=== PATIENT | male | born 1960 | race Caucasian/White ===

== ENCOUNTER 2020-08-06 23:22 | Emergency (ER) | payer BC ==
[~2020-08-06] VITALS: Ht 180.3 cm; Wt 109.1 kg
[2020-08-06 23:45] VITALS: BP 127/89; TEMP 97.7
[2020-08-06] MEDS ORDERED: PRINIVIL10 MG PO (23:56)
[2020-08-06] MEDS ORDERED: GLUCOPHAGE500 MG/TAB PO (23:57)
[2020-08-06] MEDS ORDERED: DINO-LIFE1 CTB PO (23:57)
[2020-08-07] MEDS ORDERED: CIPRO 500MG TA500 MG PO (01:45)
[2020-08-07] MEDS ORDERED: NORCO 325 MG-51 TAB PO (01:45)
[2020-08-07] MEDS ORDERED: FLAGYL500 MG PO (01:45)
[2020-08-07] MEDS ORDERED: ZOFRAN ODT4 MG PO (01:45)
[2020-08-07 01:49] LABS: COLLECTION METHOD CLEAN CATCH
[2020-08-07 01:54] LABS: MUCOUS Present /lpf; PH 5 (5-8); SQUAMOUS EPITHELIAL 0-2 /hpf; URINE APPEARANCE Clear; URINE BACTERIA None Seen /hpf; URINE BILIRUBIN Negative (NEGATIVE); URINE BLOOD Negative (NEGATIVE); URINE COLOR Yellow; URINE GLUCOSE Negative (NEGATIVE); URINE KETONE Negative (NEGATIVE); URINE LEUKOCYTE ESTERASE Negative (NEGATIVE); URINE NITRATE Negative (NEGATIVE); URINE PROTEIN(semi-quant) Negative (NEGATIVE)
[2020-08-07 02:23] VITALS: PULSE 88
== END 2020-08-07 02:23 | disposition home or self-care (01) ==
LOC: COL.ER 23:22
PROVIDERS: Nurse Practitioner
DX: K57.92 Diverticulitis of intestine, part unspecified, without perforation or abscess without bleeding (principal); Z87.891 Personal history of nicotine dependence; Z79.84 Long term (current) use of oral hypoglycemic drugs
CPT/HCPCS: J1170; J7030; Q9967